=== PATIENT | female | born 1985 | race Hispanic/Latino ===

== ENCOUNTER → 2020-02-10 | Outpatient (CLI) | payer BC ==
--- NOTE | 2020-02-12 18:07 | Diagnostic Imaging Report ---
#[id number] - MGDXBIL #BILATERAL FIRST EVER DIGITAL DIAGNOSTIC MAMMOGRAM WITH CAD: 02/10/2020 No prior exams were available for comparison. There are scattered fibroglandular elements in both breasts. Current study was also evaluated with a Computer Aided Detection (CAD) system. There are benign lymph nodes in both breasts. No significant masses, calcifications, or other findings are seen in either breast. IMPRESSION: BENIGN There is no mammographic evidence of malignancy. A 1 year screening mammogram is recommended. The patient will be notified by letter of the results. DIMAS camp/[place]franc[place]:02/12/2020 16:07:35 Medical Research Tech: Mary KIRBY(R)(M), [facility] letter sent: Normal Exam Mammogram BI-RADS: 2 Benign
--- NOTE | 2020-02-12 18:07 | Diagnostic Imaging Report ---
#[id number] - USBRELIMLT ULTRASOUND OF THE LEFT BREAST : 02/10/2020 Comparison is made to exam dated: 02/10/2020 mammogram - [facility]. Color flow and real-time ultrasound were performed on the left breast. Urban scale images of the real-time examination were reviewed. No abnormalities were seen sonographically in the left breast. IMPRESSION: NEGATIVE There is no sonographic evidence of malignancy. A 1 year screening mammogram is recommended. DIMAS camp/zev:02/12/2020 16:08:07 [employer]: Fausto Barboza [facility], [facility] letter sent: Normal Exam Ultrasound BI-RADS: 1 Negative
== END ==
LOC: MAMMO 09:36
PROVIDERS: ATTEND Family Medicine
DX: N64.4 Mastodynia (principal)
CPT/HCPCS: 77066

== ENCOUNTER → 2020-12-21 | Outpatient (CLI) | payer BC, OTHER ==
[~2020-12-21] MED LIST: COVID-19 VACC, MRNA(MODERNA)/PF 100 MCG/0.5 ML VIAL IM ONE
== END ==
LOC: VACCPMC 15:08
DX: Z23 Encounter for immunization (principal); Z20.822 Contact with and (suspected) exposure to COVID-19
CPT/HCPCS: 0011A; 91301

== ENCOUNTER → 2021-01-18 | Outpatient (CLI) | payer BC, OTHER | END | disposition home or self-care (01) | LOC: VACCPMC 08:58 | DX: Z23 Encounter for immunization (principal); Z20.822 Contact with and (suspected) exposure to COVID-19 | CPT/HCPCS: 91301 ==